=== PATIENT | female | born 1935 | race Caucasian/White ===

== ENCOUNTER 2017-04-05 05:23 | Observation (INO) ==
--- NOTE | 2017-04-05 05:39 | Emergency Department Note ---
Disposition Clinical Impression: Syncope Qualifiers: Syncope type: unspecified Qualified Code(s): R55 - Syncope and collapse Disposition: Admitted As Inpatient Condition: Good Time of Disposition: 06:55 General Adult HPI - General Chief complaint: ED Syncope Stated complaint: near syncope Time Seen by Provider: 04/05/17 05:34 Source: patient, EMS Mode of arrival: EMS Limitations: other (dementia) Nursing Notes Reviewed: Yes Vital Signs Reviewed: Yes - History of Present Illness HPI Narrative: 82-year-old female presents by EMS for apparent lightheadedness. She history of dementia and is at her baseline mental status, but when and medical assistant float at her assisted living facility help her to the bathroom this morning she was very wobbly on her feet. She did not apparently suffer any fall or syncope. She has not had any apparent recent illness or injury. Patient denies any symptoms at this time including headache, fever, confusion, neck stiffness, chest pain or shortness of breath, abdominal pain, nausea, vomiting, diarrhea, constipation , rashes or edema. Pain Scale: 0 - Related Data Home Medications Medication Instructions Recorded Confirmed Atorvastatin [Lipitor] 40 mg PO HS 08/25/16 04/05/17 Cholecalciferol (Vitamin D3) 5,000 unit PO DAILY 08/25/16 04/05/17 [Vitamin D3] Docusate [Colace] 100 mg PO BID 08/25/16 04/05/17 Insulin LISPRO [Humalog Kwikpen 10 unit SQ ACHS 08/25/16 04/05/17 U-100] Ipratropium/Albuterol Neb [Duoneb] 3 ml IH Q4HR PRN 08/25/16 04/05/17 Memantine [Namenda] 10 mg PO BID 08/25/16 04/05/17 Metoprolol Tartrate 50 mg PO BID 08/25/16 04/05/17 Paroxetine HCl [Paroxetine] 10 mg PO DAILY 08/25/16 04/05/17 Travoprost [Travatan Z] 1 drop OP DAILY 08/25/16 04/05/17 Zolpidem Tartrate [Edluar] 5 mg PO DAILY PRN 08/25/16 04/05/17 amLODIPine [Norvasc] 2.5 mg PO DAILY 08/25/16 04/05/17 Insulin Glargine,Hum.rec.anlog 12 unit SQ HS 04/05/17 04/05/17 [Lantus Solostar] Previous Rx's Medication Instructions Recorded Aspirin 81 mg PO DAILY #30 tab.chew 08/27/16 Allergies Allergy/AdvReac Type Severity Reaction Status Date / Time haloperidol [From Haldol] Allergy See Verified 04/05/17 05:26 Comments Penicillins Allergy Anaphylaxis Verified 08/24/16 14:53 triazolam [From Halcion] Allergy See Verified 04/05/17 05:26 Comments All systems ED: reviewed and negative except as stated. Past Medical History - Past Medical History Attestation: Yes The following information was validated with the patient. Source: patient Medical history: Reports: CVA, dementia, diabetes, hyperlipidemia, hypertension Surgical history: Reports: SARAI/BSO Psychiatric history: Reports: depression - Social History Smoking Status: Never smoker Smokeless Tobacco Status: No Alcohol use: Reports: none Drug use: Reports: none Physical Exam - Head Head exam: atraumatic, normocephalic, normal inspection - Eye Eye exam: Present: normal appearance, PERRL, EOMI - ENT ENT exam: normal exam, normal oropharynx, mucous membranes moist - Neck Neck exam: Present: normal inspection, full ROM, trachea midline - Chest Chest inspection: Present: normal inspection, symmetric chest wall rise - Respiratory Respiratory exam: Clear to auscultation bilaterally without wheezes rales or rhonchi Cardiovascular Cardiovascular exam: Present: regular rate, normal rhythm, normal heart sounds - Abdominal Exam Abdominal exam: Present: soft, Non-Tender. Absent: tenderness, distention, guarding, rebound, rigidity - Extremities Exam Extremities exam: Present: normal inspection, full ROM - Expanded Lower Extremity Exam Hip/Pelvis exam: Present: normal inspection, full ROM - Back Exam Back exam: Present: normal inspection, full ROM. Absent: tenderness, CVA tenderness (R), CVA tenderness (L) - Neurological Exam Neurological exam: Present: alert, oriented to person and place, CN II-XII intact - Psychiatric Psychiatric exam: Present: normal affect, normal mood - Skin Skin exam: Present: warm, dry, intact, normal color - General General appearance: alert, in no apparent distress Course - Reevaluation(s) Reevaluation #1: We were finally able to reach assisted living staff and found that the patient actually passed out and was unresponsive for a few minutes, but did not become apneic or pulseless during this spell. Her labs here are normal, orthostatic vitals were positive for decrease in blood pressure from 120-100 systolic along with near-syncope when she stood up. Patient agrees with admission for syncope. Her power of civil attorney is at bedside also agrees with admission. Hospitalist was paged. Time: 06:54 Vital Signs Temperature 96.5 F L 04/05/17 05:29 Pulse Rate 68 04/05/17 05:29 Respiratory Rate 16 04/05/17 05:29 Blood Pressure 108/69 04/05/17 05:29 O2 Sat by Pulse Oximetry 96 04/05/17 05:29 Temperature 97.6 F 04/06/17 07:36 Pulse Rate 79 04/06/17 07:36 Respiratory Rate 16 04/06/17 07:36 Blood Pressure 158/78 04/06/17 07:36 O2 Sat by Pulse Oximetry 95 04/06/17 07:36 Oxygen Delivery Oxygen Delivery Room Air Medical Decision Making - Lab Data Result diagrams: 04/05/17 05:46 04/06/17 05:15 Lab Results 04/05/17 04/05/17 04/05/17 Range/Units 05:46 05:46 05:46 WBC 6.5 (4.3-11.1) K/mcL RBC 4.97 (3.82-4.97) M/mcL Hgb 14.3 (11.5-15.4) g/dL Hct 43.3 (35.3-44.9) % MCV 87.1 (83.0-100.0) fL MCH 28.8 (28.0-33.3) pg MCHC 33.0 (31.6-35.5) g/dL RDW 14.4 (11.5-14.5) % Plt Count 226 (140-400) K/mcL MPV 9.6 (9.4-12.4) fL Immature Gran % 0.5 (0-4) % Seg Neutrophils % 59.3 % Lymphocytes % 29.9 % Monocytes % 6.3 % Eosinophils % 3.4 % Basophils % 0.6 % Neutrophils # 3.9 (1.6-8.9) K/mcL Lymphocytes # 1.9 (0.6-4.6) K/mcL Monocytes # 0.4 (0.0-1.3) K/mcL Eosinophils # 0.2 (0.0-0.6) K/mcL Basophils # 0.0 (0.0-0.2) K/mcL Sodium 139 (136-145) mEq/L Potassium 4.2 (3.5-4.5) mEq/L Chloride 103 (98-109) mEq/L Carbon Dioxide 24 (19-29) mEq/L BUN 16 (7-20) mg/dL Creatinine 0.96 (0.57-1.11) mg/dL Est GFR ( Amer) > 60 (> 60) Est GFR (Non-Af Amer) 56 L (> 60) BUN/Creatinine Ratio 17 (6-26) Glucose 329 H (70-99) mg/dL Calculated Osmolality 302 H (280-300) Calcium 9.2 (8.6-10.8) mg/dL Troponin I 0.00 (0-0.03) ng/mL Urine Color (Yellow) Urine Clarity (Clear) Urine pH (5.0-8.0) pH Units Ur Specific [place] (1.010-1.025) Urine Protein (Neg-Trace) mg/dL Urine Glucose (UA) (Normal) mg/dL Urine Ketones (Negative) mg/dL Urine Blood (Negative) Urine Nitrite (Negative) Urine Bilirubin (Negative) Urine Urobilinogen (Normal) mg/dL Ur Leukocyte Esterase (Negative) 04/05/17 Range/Units 05:58 WBC (4.3-11.1) K/mcL RBC (3.82-4.97) M/mcL Hgb (11.5-15.4) g/dL Hct (35.3-44.9) % MCV (83.0-100.0) fL MCH (28.0-33.3) pg MCHC (31.6-35.5) g/dL RDW (11.5-14.5) % Plt Count (140-400) K/mcL MPV (9.4-12.4) fL Immature Gran % (0-4) % Seg Neutrophils % % Lymphocytes % % Monocytes % % Eosinophils % % Basophils % % Neutrophils # (1.6-8.9) K/mcL Lymphocytes # (0.6-4.6) K/mcL Monocytes # (0.0-1.3) K/mcL Eosinophils # (0.0-0.6) K/mcL Basophils # (0.0-0.2) K/mcL Sodium (136-145) mEq/L Potassium (3.5-4.5) mEq/L Chloride (98-109) mEq/L Carbon Dioxide (19-29) mEq/L BUN (7-20) mg/dL Creatinine (0.57-1.11) mg/dL Est GFR ( Amer) (> 60) Est GFR (Non-Af Amer) (> 60) BUN/Creatinine Ratio (6-26) Glucose (70-99) mg/dL Calculated Osmolality (280-300) Calcium (8.6-10.8) mg/dL Troponin I (0-0.03) ng/mL Urine Color Yellow (Yellow) Urine Clarity Clear (Clear) Urine pH 6.5 (5.0-8.0) pH Units Ur Specific [place] 1.008 L (1.010-1.025) Urine Protein Negative (Neg-Trace) mg/dL Urine Glucose (UA) 100 H (Normal) mg/dL Urine Ketones Negative (Negative) mg/dL Urine Blood Negative (Negative) Urine Nitrite Negative (Negative) Urine Bilirubin Negative (Negative) Urine Urobilinogen Normal (Normal) mg/dL Ur Leukocyte Esterase Negative (Negative) Attestation Statement - Attestation Attestation: I examined this patient and my medical decision-making was reviewed with the AUTOMATIC PRINT DEVELOPER/PA/Advanced Practice Nurse/Resident Physician. I agree with the documented findings, disposition and treatment plan as described except to the extent set forth below. 82 yo female BIB EMS after syncopal episode at assisted living facility. Pt apparently syncopized while walking to the bathroom. Pt has negative initial troponin. ECG does not show STEMI. vss in ED. Pt admitted to the hospital for further care and evaluation.
[2017-04-05 05:58] LABS: Basophils % 0.6 %; Eosinophils # 0.2 K/mcL (0.0-0.6); Eosinophils % 3.4 %; Hematocrit 43.3 % (35.3-44.9); Hemoglobin 14.3 g/dL (11.5-15.4); Immature Granulocytes % 0.5 % (0-4); Lymphocytes # 1.9 K/mcL (0.6-4.6); Lymphocytes % 29.9 %; Mean Corpuscular Hemoglobin 28.8 pg (28.0-33.3); Mean Corpuscular Volume 87.1 fL (83.0-100.0); Mean Platelet Volume 9.6 fL (9.4-12.4); Monocytes # 0.4 K/mcL (0.0-1.3); Monocytes % 6.3 %; Neutrophils # 3.9 K/mcL (1.6-8.9); Platelet Count 226 K/mcL (140-400); Red Blood Count 4.97 M/mcL (3.82-4.97); Red Cell Distribution Width 14.4 % (11.5-14.5); Segmented Neutrophils % 59.3 %
[2017-04-05 06:05] LABS: Bilirubin,Urine Negative (Negative); Blood,Urine Negative (Negative); Clarity,Urine Clear (Clear); Color,Urine Yellow (Yellow); Glucose,Urine (UA) 100 mg/dL (Normal); Ketones,Urine Negative (Negative); Leukocyte Esterase,Urine Negative (Negative); Nitrite,Urine Negative (Negative); PH,Urine 6.5 pH Units (5.0-8.0); Protein,Urine Negative (Neg-Trace); Specific Gravity,Urine 1.008 (1.010-1.025); Urobilinogen,Urine Normal (Normal)
[2017-04-05 06:09] LABS: BUN/Creatinine Ratio 17 (6-26); Blood Urea Nitrogen 16 mg/dL (7-20); Calcium 9.2 mg/dL (8.6-10.8); Carbon Dioxide 24 mEq/L (19-29); Chloride 103 mEq/L (98-109); Glucose 329 mg/dL (70-99); Osmolality,Calculated 302 (280-300); Potassium 4.2 mEq/L (3.5-4.5); Sodium 139 mEq/L (136-145); eGFR For African Americans > 60 (> 60); eGFR For Non-African Americans 56 (> 60)
[2017-04-05] MEDS ORDERED: 0.9 % Sodium Chloride 1,000 ML IVC ONE (06:54)
--- NOTE | 2017-04-05 07:17 | Emergency Department Note ---
Disposition Clinical Impression: Syncope Qualifiers: Syncope type: unspecified Qualified Code(s): R55 - Syncope and collapse Disposition: Admitted As Inpatient Condition: Good Referrals: Millie Muniz [Primary Care Provider] - Forms: ED Satisfaction Letter General Adult HPI - General Chief complaint: ED Syncope Stated complaint: near syncope Time Seen by Provider: 04/05/17 05:34 Source: patient, EMS Mode of arrival: EMS Limitations: other (dementia) - History of Present Illness Pain Scale: 0 - Related Data Home Medications Medication Instructions Recorded Confirmed Atorvastatin [Lipitor] 40 mg PO HS 08/25/16 08/25/16 Cholecalciferol (Vitamin D3) 5,000 unit PO DAILY 08/25/16 08/25/16 [Vitamin D3] Docusate [Colace] 100 mg PO BID 08/25/16 08/25/16 Insulin LISPRO [Humalog Kwikpen 6 unit SQ TID 08/25/16 08/25/16 U-100] Ipratropium/Albuterol Neb [Duoneb] 3 ml IH Q4HR PRN 08/25/16 08/25/16 Lactulose [Kristalose] 20 gm PO DAILY PRN 08/25/16 08/25/16 Meclizine HCl [Bonine] 12.5 mg PO TID PRN 08/25/16 08/25/16 Memantine [Namenda] 10 mg PO BID 08/25/16 08/25/16 Metoprolol Tartrate 50 mg PO BID 08/25/16 08/25/16 Mometasone Furoate [Elocon] 1 appl TP BID PRN 08/25/16 08/25/16 Nystatin [Nystatin Suspension] 10 ml PO PRN PRN 08/25/16 08/25/16 Paroxetine HCl [Paroxetine] 10 mg PO DAILY 08/25/16 08/25/16 Promethazine [Phenergan] 0.5 ml IM Q6HR PRN 08/25/16 08/25/16 Travoprost [Travatan Z] 1 drop OP DAILY 08/25/16 08/25/16 Zolpidem Tartrate [Edluar] 5 mg PO DAILY PRN 08/25/16 08/25/16 amLODIPine [Norvasc] 2.5 mg PO DAILY 08/25/16 08/25/16 Previous Rx's Medication Instructions Recorded Aspirin 81 mg PO DAILY #30 tab.chew 08/27/16 Allergies Allergy/AdvReac Type Severity Reaction Status Date / Time haloperidol [From Haldol] Allergy See Verified 04/05/17 05:26 Comments Penicillins Allergy Anaphylaxis Verified 08/24/16 14:53 triazolam [From Halcion] Allergy See Verified 04/05/17 05:26 Comments Past Medical History - Past Medical History Medical history: Reports: CVA, dementia, diabetes, hyperlipidemia, hypertension Surgical history: Reports: SARAI/BSO Psychiatric history: Reports: depression - Social History Smoking Status: Never smoker Smokeless Tobacco Status: No Alcohol use: Reports: none Drug use: Reports: none Physical Exam - General Limitations: other (dementia) General appearance: alert, in no apparent distress Course Vital Signs Temperature 96.5 F L 04/05/17 05:29 Pulse Rate 68 04/05/17 05:29 Respiratory Rate 16 04/05/17 05:29 Blood Pressure 108/69 04/05/17 05:29 O2 Sat by Pulse Oximetry 96 04/05/17 05:29 Temperature 96.5 F L 04/05/17 05:29 Pulse Rate 63 04/05/17 07:40 Respiratory Rate 16 04/05/17 07:40 Blood Pressure 138/69 04/05/17 07:40 O2 Sat by Pulse Oximetry 97 04/05/17 07:40 Oxygen Delivery Oxygen Delivery Room Air Medical Decision Making - Lab Data Result diagrams: 04/05/17 05:46 04/05/17 05:46 Lab Results 04/05/17 04/05/17 04/05/17 Range/Units 05:46 05:46 05:46 WBC 6.5 (4.3-11.1) K/mcL RBC 4.97 (3.82-4.97) M/mcL Hgb 14.3 (11.5-15.4) g/dL Hct 43.3 (35.3-44.9) % MCV 87.1 (83.0-100.0) fL MCH 28.8 (28.0-33.3) pg MCHC 33.0 (31.6-35.5) g/dL RDW 14.4 (11.5-14.5) % Plt Count 226 (140-400) K/mcL MPV 9.6 (9.4-12.4) fL Immature Gran % 0.5 (0-4) % Seg Neutrophils % 59.3 % Lymphocytes % 29.9 % Monocytes % 6.3 % Eosinophils % 3.4 % Basophils % 0.6 % Neutrophils # 3.9 (1.6-8.9) K/mcL Lymphocytes # 1.9 (0.6-4.6) K/mcL Monocytes # 0.4 (0.0-1.3) K/mcL Eosinophils # 0.2 (0.0-0.6) K/mcL Basophils # 0.0 (0.0-0.2) K/mcL Sodium 139 (136-145) mEq/L Potassium 4.2 (3.5-4.5) mEq/L Chloride 103 (98-109) mEq/L Carbon Dioxide 24 (19-29) mEq/L BUN 16 (7-20) mg/dL Creatinine 0.96 (0.57-1.11) mg/dL Est GFR ( Amer) > 60 (> 60) Est GFR (Non-Af Amer) 56 L (> 60) BUN/Creatinine Ratio 17 (6-26) Glucose 329 H (70-99) mg/dL Calculated Osmolality 302 H (280-300) Calcium 9.2 (8.6-10.8) mg/dL Troponin I 0.00 (0-0.03) ng/mL Urine Color (Yellow) Urine Clarity (Clear) Urine pH (5.0-8.0) pH Units Ur Specific [place] (1.010-1.025) Urine Protein (Neg-Trace) mg/dL Urine Glucose (UA) (Normal) mg/dL Urine Ketones (Negative) mg/dL Urine Blood (Negative) Urine Nitrite (Negative) Urine Bilirubin (Negative) Urine Urobilinogen (Normal) mg/dL Ur Leukocyte Esterase (Negative) 04/05/17 Range/Units 05:58 WBC (4.3-11.1) K/mcL RBC (3.82-4.97) M/mcL Hgb (11.5-15.4) g/dL Hct (35.3-44.9) % MCV (83.0-100.0) fL MCH (28.0-33.3) pg MCHC (31.6-35.5) g/dL RDW (11.5-14.5) % Plt Count (140-400) K/mcL MPV (9.4-12.4) fL Immature Gran % (0-4) % Seg Neutrophils % % Lymphocytes % % Monocytes % % Eosinophils % % Basophils % % Neutrophils # (1.6-8.9) K/mcL Lymphocytes # (0.6-4.6) K/mcL Monocytes # (0.0-1.3) K/mcL Eosinophils # (0.0-0.6) K/mcL Basophils # (0.0-0.2) K/mcL Sodium (136-145) mEq/L Potassium (3.5-4.5) mEq/L Chloride (98-109) mEq/L Carbon Dioxide (19-29) mEq/L BUN (7-20) mg/dL Creatinine (0.57-1.11) mg/dL Est GFR ( Amer) (> 60) Est GFR (Non-Af Amer) (> 60) BUN/Creatinine Ratio (6-26) Glucose (70-99) mg/dL Calculated Osmolality (280-300) Calcium (8.6-10.8) mg/dL Troponin I (0-0.03) ng/mL Urine Color Yellow (Yellow) Urine Clarity Clear (Clear) Urine pH 6.5 (5.0-8.0) pH Units Ur Specific [place] 1.008 L (1.010-1.025) Urine Protein Negative (Neg-Trace) mg/dL Urine Glucose (UA) 100 H (Normal) mg/dL Urine Ketones Negative (Negative) mg/dL Urine Blood Negative (Negative) Urine Nitrite Negative (Negative) Urine Bilirubin Negative (Negative) Urine Urobilinogen Normal (Normal) mg/dL Ur Leukocyte Esterase Negative (Negative) Attestation Statement - Attestation Attestation: Care assumed from Dr. Ko at 7 AM pending admission. Patient presented with a syncopal event. Labs reviewed by me. She is hyperglycemic with a known history of diabetes. EKG reviewed by me. Patient resting comfortably with family at bedside. She appears in no acute distress. Meal tray ordered. We will discuss this case with the admitting hospitalist and arrange admission
[2017-04-05] MEDS ORDERED: Ondansetron 4 MG/2 ML VIAL IVP PRN (07:44)
[2017-04-05] MEDS ORDERED: Naloxone 0.4 MG/ML INJ IVP PRN (07:44)
[2017-04-05] MEDS ORDERED: Acetaminophen 325 MG TABLET PO PRN (07:44)
[2017-04-05] MEDS ORDERED: Dextrose Gel 15 GM PO PRN ×2 (07:53)
[2017-04-05] MEDS ORDERED: *HR* Dextrose 50 % in Water (Syg) 50 ML SYRINGE IVP PRN (07:53)
[2017-04-05] MEDS ORDERED: D5% in Water 1,000 ML IVC PRN (07:53)
--- NOTE | 2017-04-05 08:39 | Internal Med History&Physical ---
Date of Encounter: 04/05/17 Time of Encounter: 08:00 Assessment and Plan (1) Syncope Current visit: Yes Status: Acute The patient had a near syncopal episode according to her own admission and according to EMS reports. She denies falling down or hitting her head. No tenderness on palpation of the head is present. No indication for a CT scan of the head. Patient will be placed under observation on telemetry to monitor for any arrhythmic events. Orthostatic vitals performed in the emergency room have been negative. Patient's last echo was from August 2016. We will obtain a repeat echocardiogram. Patient does not have a history of coronary artery disease or CABG in the past. Will obtain PT and OT consults to evaluate the patient. Likely discharge home tomorrow after 24 hours of monitoring on telemetry and after the echocardiogram is performed. If no arrhythmic events detected on telemetry, patient may need outpatient Holter monitoring or event recorder. Qualifiers: Syncope type: unspecified Qualified Code(s): R55 - Syncope and collapse (2) Hypertension Current visit: Yes Status: Chronic Patient's blood pressure is adequately controlled. Will hold blood pressure medication for now. Resume based on her blood pressure. Qualifiers: Hypertension type: essential hypertension Qualified Code(s): I10 - Essential (primary) hypertension (3) Dementia Current visit: Yes Status: Chronic Patient is oriented 2. Continue home medications. Qualifiers: Dementia type: unspecified type Dementia behavioral disturbance: without behavioral disturbance Qualified Code(s): F03.90 - Unspecified dementia without behavioral disturbance (4) Cerebrovascular accident Current visit: Yes Status: Chronic Patient had a CVA in August 2016 in the right MCA territory. Continue aspirin and statin. Patient had cryptogenic stroke-however, she seems to have paroxysmal atrial fibrillation which may be causing her cerebrovascular events. Patient will require outpatient Holter monitoring if inpatient telemetry does not reveal any arrhythmic events. Will not start anticoagulation during the current hospital stay. This mainly to be started as an outpatient depending on further outpatient investigations. Qualifiers: CVA mechanism: embolism Precerebral and cerebral artery: middle cerebral artery Laterality of affected vessel: right Qualified Code(s): I63.411 - Cerebral infarction due to embolism of right middle cerebral artery (5) Atrial fibrillation Current visit: Yes Status: Suspected Patient likely has paroxysmal atrial fibrillation which is the cause of her prior strokes and may be the cause of her near syncopal episode during the current admission. Patient may require outpatient Holter or event recorder monitoring if current telemetry is negative. Qualifiers: Atrial fibrillation type: paroxysmal Qualified Code(s): I48.0 - Paroxysmal atrial fibrillation Internal Medicine - H&P: HPI Chief complaint: Near Syncope Admitted From: Emergency Dept Plans for Post Hospital Care: Transfer Alf Care History of present illness: Ms. Bashir is a 82 year old female who was brought to the emergency department by EMS after she had a syncopal episode while she was at her assisted living facility. Currently, the patient is alone in the room and is not accompanied by family. History was obtained from the patient as well as from reports from EMS and from the emergency room physician. The patient states that after she got to bed from the restroom, while she was standing, she felt like she was going to pass out and felt very lightheaded. She called out for help. She was assisted onto the bed where she lay down and she states that she did not pass out. According to EMS records, they were called as the patient had experienced a near syncopal episode. When EMS arrived, the patient was sitting in a chair. The patient denies any headache or chest pain, palpitations, shortness of breath, cough or wheezing. She denies any nausea, diaphoresis, vomiting, diarrhea or constipation or abdominal pain. Past Med Surg Social Fam HX - Past Medical History Medical history: CVA, dementia, diabetes, hyperlipidemia, hypertension Psychiatric history: depression - Past Surgical History Surgical History: SARAI/BSO - Social History Smoking Status: Never smoker Smokeless Tobacco Status: No Alcohol use: none Drug use: none Current living situation: Assisted Living Activity Level: Uses cane/walker Recent Out of Country Travel Within the Last 8 Weeks: No Exposure or Possible Exposure to Illness During Travel: No - Family History Father Hx Family Cardiac Disorders: Yes Internal Medicine - H&P: Meds Atorvastatin [Lipitor] 40 mg PO HS 08/25/16 [History] Cholecalciferol (Vitamin D3) [Vitamin D3] 5,000 unit PO DAILY 08/25/16 [History] Docusate [Colace] 100 mg PO BID 08/25/16 [History] Insulin LISPRO [Humalog Kwikpen U-100] 6 unit SQ TID 08/25/16 [History] Ipratropium/Albuterol Neb [Duoneb] 3 ml IH Q4HR PRN 08/25/16 [History] Lactulose [Kristalose] 20 gm PO DAILY PRN 08/25/16 [History] Meclizine HCl [Bonine] 12.5 mg PO TID PRN 08/25/16 [History] Memantine [Namenda] 10 mg PO BID 08/25/16 [History] Metoprolol Tartrate 50 mg PO BID 08/25/16 [History] Mometasone Furoate [Elocon] 1 appl TP BID PRN 08/25/16 [History] Nystatin [Nystatin Suspension] 10 ml PO PRN PRN 08/25/16 [History] Paroxetine HCl [Paroxetine] 10 mg PO DAILY 08/25/16 [History] Promethazine [Phenergan] 0.5 ml IM Q6HR PRN 08/25/16 [History] Travoprost [Travatan Z] 1 drop OP DAILY 08/25/16 [History] Zolpidem Tartrate [Edluar] 5 mg PO DAILY PRN 08/25/16 [History] amLODIPine [Norvasc] 2.5 mg PO DAILY 08/25/16 [History] Aspirin 81 mg PO DAILY #30 tab.chew 08/27/16 [Rx] Allergies haloperidol [From Haldol] Allergy (Verified 04/05/17 05:26) See Comments Penicillins Allergy (Verified 08/24/16 14:53) Anaphylaxis triazolam [From Halcion] Allergy (Verified 04/05/17 05:26) See Comments All Systems PM: A 10-system review of systems was performed and is negative for pertinent findings except as documented above in the HPI. Review of systems: 10 systems have been reviewed and are negative except as mentioned in the history of present illness - Constitutional Vitals: Temp Pulse Resp BP Pulse Ox 96.5 F L 63 16 138/69 97 04/05/17 05:29 04/05/17 07:40 04/05/17 08:14 04/05/17 08:14 04/05/17 07:40 Exam: Gen.: Lying in bed. No acute distress. Eyes: Pupils equal, round and reactive to light. Extraocular muscles intact. ENT: Moist mucous membranes. No oropharyngeal erythema or discharge. Chest: Clear to auscultation bilaterally. No adventitious sounds present. CVS: First and second heart sounds present. No murmurs, rubs or gallops. Regular rate and rhythm. Abdomen: Soft, nontender, nondistended. Bowel sounds present. No hepatosplenomegaly. Skin: No decubitus ulcers appreciated. SCIENCE MANAGER: Cranial nerves II through XII grossly intact. Power 5/5 all over. No sensory abnormalities. Psychiatric: Alert, awake and oriented to place and person. Lymphatic system: No lymphadenopathy appreciated Internal Med - H&P Results - Labs CBC & Chem 7: 04/05/17 05:46 04/05/17 05:46 - EKG Data -: EKG Interpreted by Myself EKG shows normal: sinus rhythm Rate: normal - EKG Data Prior EKG available for review: yes When compared to previous EKG: there is no significant change - Diagnostic Studies Chest x-ray Status: image reviewed by me (No acute infiltrates or abnormalities detected) Other Images Additional comments: Echo from August 2016 reveals a preserved ejection fraction of 60%, mild left ventricular diastolic dysfunction. Carotid Dopplers from August 2016 revealed 40-59% stenosis in the left proximal internal carotid artery. Repeat carotid ultrasound in one year was recommended.
[2017-04-05] MEDS ORDERED: Insulin DETEMIR 100 UNIT/ML X5UNITS SQ ONE (08:51)
[2017-04-05] MEDS: Insulin LISPRO 300 UNITS/3 ML VIAL SQ SCH ×2 (11:26→16:39)
--- NOTE | 2017-04-05 13:12 | ECHO - Doppler Report ---
Echocardiogram Name: Thalia Bashir Date of Study: 04/05/2017 Date: 1935 Ht: 62.0 in Medical Record#: [id number] Age: 82 Wt: 150.0 lb Gender: Female BSA: 1.69 Order #: [id number] Location: [facility] Room #: 2A12 Reading Physician: Armen Echavarria MD, [facility] Architectural Draftsman: Mabel Mancini Ordering Physician: Benigno Campbell MD Primary Physician: None Indications: Syncope Impressions: LVEF 55-60%. Mild concentric left ventricular hypertrophy. Mild left ventricular diastolic dysfunction. No pulmonary hypertension. No significant valvular dysfunction. Left Ventricular Wall Motion: Rest Echo Findings All wall segments showed normal motion. Findings: Study Quality * Technically adequate exam. Right Ventricle * Normal right ventricular structure and function. Left Atrium * Normal left atrial size. Aorta * Normally sized aortic root. Pericardium * The pericardium appears normal. Mitral Valve * No mitral stenosis. * Mild mitral annular calcification * Mild mitral regurgitation. Left Ventricle * Mild concentric left ventricular hypertrophy. * LVEF 55-60%. * Mild left ventricular diastolic dysfunction. Tricuspid Valve * Estimated RVSP is 15 mmHg. * Estimated RA pressure is 3-5 mmHg. * No pulmonary hypertension. * No tricuspid stenosis. * Trace tricuspid regurgitation. Pulmonic Valve * No pulmonic regurgitation. * No pulmonic stenosis. Aortic Valve * No aortic regurgitation. * No aortic stenosis. IVC * Normal IVC dimensions and inspiratory collapse. Interatrial Septum * Interatrial septum not well evaluated. Right Atrium * Right atrium is not well visualized. History Hypertension Diabetes Hypercholesteremia Years 2 Packs 1 Family History of CAD 08/25/2016 a Previous Echo was performed. Measurements: BP: 138/ 80 2D Normal Values RVIDd: 2.40 cm <2.7 cm IVSd: 2.40 cm 0.6 - 1.0 cm LVIDd: 2.20 cm 3.7 - 5.6 cm LVPWd: 1.20 cm 0.6 - 1.1 cm LVIDs: 1.50 cm 1.5 - 3.6 cm LA: 3.90 cm 2.0 - 4.0cm %FS: 31.80 cm >25 % LA volume: 41 Mitral Valve Peak E:.73 m/sec Peak A:1.14 m/sec E/A Ratio:0.6 Peak E' Lat Celestine:4.68 cm/s Peak E' Med Celestine:3.22 cm/s E/E' Lat Ratio:15.5 E/E' Med Ratio:22.5 Tricuspid Valve TV Regurg Peak Grad: 15.00mmHg TV Regurg Peak Celestine: 1.91m/sec Updated by Armen Echavarria MD, [facility] on 04/05/2017 1:07:33 PM electronically signed on 04/05/2017 1:08:45 PM with status of Final Wall Motion [place]: 1=Normal, 2=Hypokinesis, 3=Akinesis, 4=Dyskinesis, 5=Aneurysmal, 6=Hyperkinetic, X=Not Visualized (Blank)=Missing
[2017-04-05] MEDS ORDERED: Insulin DETEMIR 100 UNIT/ML X5UNITS SQ SCH (21:00)
[2017-04-05] MEDS ORDERED: Insulin LISPRO 300 UNITS/3 ML VIAL SQ SCH (21:00)
[2017-04-06 05:54] LABS: BUN/Creatinine Ratio 22 (6-26); Blood Urea Nitrogen 17 mg/dL (7-20); Calcium 8.8 mg/dL (8.6-10.8); Carbon Dioxide 22 mEq/L (19-29); Chloride 105 mEq/L (98-109); Glucose 212 mg/dL (70-99); Osmolality,Calculated 294 (280-300); Sodium 138 mEq/L (136-145); eGFR For African Americans > 60 (> 60); eGFR For Non-African Americans > 60 (> 60)
[2017-04-06 07:56] VITALS: BP 158/78
[2017-04-06] MEDS: Insulin LISPRO 300 UNITS/3 ML VIAL SQ SCH (08:26)
--- NOTE | 2017-04-06 10:50 | Discharge Summary ---
Date of Encounter: 04/06/17 Time of Encounter: 10:47 - Discharge Diagnosis (1) Syncope Priority: Primary Status: Acute Qualifiers: Syncope type: unspecified Qualified Code(s): R55 - Syncope and collapse (2) Dementia Priority: Secondary Status: Chronic Qualifiers: Dementia type: unspecified type Dementia behavioral disturbance: without behavioral disturbance Qualified Code(s): F03.90 - Unspecified dementia without behavioral disturbance (3) CVA (cerebral vascular accident) Priority: Secondary Status: Acute Qualifiers: CVA mechanism: thrombosis Precerebral and cerebral artery: unspecified cerebral artery Qualified Code(s): I63.30 - Cerebral infarction due to thrombosis of unspecified cerebral artery (4) CAD (coronary artery disease) Priority: Secondary Status: Chronic Qualifiers: Coronary Disease-Associated Artery/Lesion type: bypass graft [place] vs. transplanted heart: [place] heart Associated angina: without angina Qualified Code(s): I25.810 - Atherosclerosis of coronary artery bypass graft(s) without angina pectoris - Discharge Medications Home Medications: Atorvastatin [Lipitor] 40 mg PO HS 08/25/16 [History] Cholecalciferol (Vitamin D3) [Vitamin D3] 5,000 unit PO DAILY 08/25/16 [History] Docusate [Colace] 100 mg PO BID 08/25/16 [History] Insulin LISPRO [Humalog Kwikpen U-100] 10 unit SQ ACHS 08/25/16 [History] Ipratropium/Albuterol Neb [Duoneb] 3 ml IH Q4HR PRN 08/25/16 [History] Memantine [Namenda] 10 mg PO BID 08/25/16 [History] Metoprolol Tartrate 50 mg PO BID 08/25/16 [History] Paroxetine HCl [Paroxetine] 10 mg PO DAILY 08/25/16 [History] Travoprost [Travatan Z] 1 drop OP DAILY 08/25/16 [History] Zolpidem Tartrate [Edluar] 5 mg PO DAILY PRN 08/25/16 [History] amLODIPine [Norvasc] 2.5 mg PO DAILY 08/25/16 [History] Aspirin 81 mg PO DAILY #30 tab.chew 08/27/16 [Rx] Insulin Glargine,Hum.rec.anlog [Lantus Solostar] 12 unit SQ HS 04/05/17 [History ] Allergies/Adverse Reactions: Allergies haloperidol [From Haldol] Allergy (Verified 04/05/17 05:26) See Comments Penicillins Allergy (Verified 08/24/16 14:53) Anaphylaxis triazolam [From Halcion] Allergy (Verified 04/05/17 05:26) See Comments Procedures/tests Complete & Pending: Procedures Performed prior 72 hours Category Date Time Status EV echocardiogram Routine Y 04/05/17 08:35 Completed Date of admission: 04/05/17 08:04 Primary care physician: Millie Muniz Discharging clinician: Grupo Elliott Anticipated date of discharge: 04/06/17 - Patient Status Disposition: Home, Self-Care Condition: Good Functional capacity at discharge: uses cane/walker - Discharge Instructions Follow Up With: Millie Muniz [Primary Care Provider] - Additional Instructions: Discharge to assisted living facility - Diet and Activity Activity: increase activity as tolerated Diet: advance to your usual diet Interval History: Ms. Bashir is a 82 year old female who was brought to the emergency department by EMS after she had a syncopal episode while she was at her assisted living facility. Currently, the patient is alone in the room and is not accompanied by family. History was obtained from the patient as well as from reports from EMS and from the emergency room physician. The patient states that after she got to bed from the restroom, while she was standing, she felt like she was going to pass out and felt very lightheaded. She called out for help. She was assisted onto the bed where she lay down and she states that she did not pass out. According to EMS records, they were called as the patient had experienced a near syncopal episode. When EMS arrived, the patient was sitting in a chair. The patient denies any headache or chest pain, palpitations, shortness of breath, cough or wheezing. She denies any nausea, diaphoresis, vomiting, diarrhea or constipation or abdominal pain. Hospital course: Ms. Bashir is a 82 year old female who presented to our emergency department, from an assisted living facility. The patient has a history as stated above, she presented due to a presyncopal episode, the patient did not pass out. She underwent workup in the emergency department and was admitted for further observation and workup. Chest x-ray did not reveal acute abnormalities. Troponin was negative. An echo Was Obtained Which Was Essentially Unremarkable. Her Vital Signs Are Otherwise Stable, Blood Work Is Essentially Unremarkable. The Patient Is Alert, Awake, Oriented, She Is Not in Any Distress at This Point. The Patient Will Be Discharged Home Today, She Will Continue with Home Medications. - Time Spent with Patient Total time spent providing and/or coordinating discharge services: - Constitutional Vitals: Temp Pulse Resp BP Pulse Ox 97.6 F 79 16 158/78 95 04/06/17 07:36 04/06/17 07:36 04/06/17 07:36 04/06/17 07:36 04/06/17 07:36 General appearance: Present: A&O X 3, pleasant, no acute distress - Head Head exam: Present: atraumatic, normocephalic - Eye Eye exam: Present: PERRL, conjuntiva pink, sclera anicteric Pupils: Present: PERRL - Neck Neck exam general surgery: Present: supple, trachea midline. Absent: lymphadenopathy - Respiratory Respiratory exam: Present: CTAB. Absent: accessory muscle use, rales, rhonchi, wheezes - Cardiovascular Cardiovascular exam: Present: RRR, +S1, +S2. Absent: diastolic murmur, gallop, rubs, systolic murmur - GI/Abdominal GI/Abdominal exam: Present: normal bowel sounds, soft, no peritoneal signs. Absent: distended, tenderness - Extremities Exam Extremities exam: Present: warm, radial pulses palpable and symetrical. Absent : calf tenderness, cyanotic, pedal edema - Neurological Exam Neurological exam: Present: CN II-XII intact, oriented X3, no focal deficits. Absent: pronater drift, facial droop, speech deficit - Skin Skin exam: Present: dry, intact
--- NOTE | 2017-04-06 20:12 | Electrocardiograph Report ---
[place] [id number] Test Date: 2017-04-05 Pat Name: Thalia Bashir Department: 104 Room: 2A12 Gender: F Dye Penetrant Testing Technician: PARMINDER : 1935 Requested By: Gilberto Driver Order Number: [id number] Reading MD: Armen Echavarria MD Measurements Intervals [place] Rate: 68 P: 1 LA: 169 QRS: 48 QRSD: 92 T: 65 QT: 423 QTc: 440 Interpretive Statements SINUS RHYTHM Electronically Signed On 04-06-2017 20:11:11 EDT by Armen Echavarria MD
== END 2017-04-06 12:37 | disposition home or self-care (01) ==
LOC: 2ANU 05:23 → EMEROO 05:23 → 2ANU 09:21
PROVIDERS: ADMIT Internal Medicine Sleep Medicine; ATTEND Internal Medicine

== ENCOUNTER 2017-09-30 10:10 | Observation (INO) ==
--- NOTE | 2017-09-30 11:43 | Emergency Department Note ---
START Narrative - START START: I examined this patient and my medical decision-making was reviewed with the Resident Physician. I agree with the documented findings, disposition and treatment plan as described except to the extent set forth below. Pt altered for last couple days per niece's report. No lateralizing deficit on my exam. Speaks, answers questions without dysarthria. Work up reviewed with residents.
[2017-09-30 12:12] LABS: Bilirubin,Urine Negative (Negative); Blood,Urine Negative (Negative); Clarity,Urine Cloudy (Clear); Color,Urine Yellow (Yellow); Glucose,Urine (UA) Normal (Normal); Ketones,Urine Negative (Negative); Leukocyte Esterase,Urine Negative (Negative); Nitrite,Urine Negative (Negative); Protein,Urine Negative (Neg-Trace); Specific Gravity,Urine 1.015 (1.010-1.025); Urobilinogen,Urine Normal (Normal)
[2017-09-30 12:23] LABS: RBC,Urine 0-3 per hpf (0-3); Squamous Epithelial Cell,Urine Few per lpf (None-Few); WBC,Urine 0-3 per hpf (0-3)
[2017-09-30 12:24] LABS: Basophils % 0.5 %; Eosinophils # 0.1 K/mcL (0.0-0.6); Eosinophils % 1.9 %; Hematocrit 39.3 % (35.3-44.9); Hemoglobin 12.8 g/dL (11.5-15.4); Immature Granulocytes % 0.3 % (0-4); Lymphocytes % 25.8 %; Mean Corpuscular HGB Conc 32.6 g/dL (31.6-35.5); Mean Corpuscular Hemoglobin 28.6 pg (28.0-33.3); Mean Corpuscular Volume 87.7 fL (83.0-100.0); Mean Platelet Volume 9.3 fL (9.4-12.4); Monocytes # 0.4 K/mcL (0.0-1.3); Monocytes % 6.5 %; Platelet Count 197 K/mcL (140-400); Red Blood Count 4.48 M/mcL (3.82-4.97); Red Cell Distribution Width 15.5 % (11.5-14.5)
[2017-09-30 12:24] LABS: Bacteria,Urine None Seen per hpf (None-Few); Yeast,Urine Few per hpf (None Seen)
[2017-09-30 12:25] LABS: Lymphocytes # 1.7 K/mcL (0.6-4.6); Neutrophils # 4.2 K/mcL (1.6-8.9)
[2017-09-30 12:38] LABS: Alanine Aminotransferase 17 Units/L (0-55); Albumin 3.1 g/dL (3.5-5.0); Albumin/Globulin Ratio 0.9 (1.1-2.2); Alkaline Phosphatase 112 Units/L (38-126); Aspartate Amino Transferase 16 Units/L (5-34); BUN/Creatinine Ratio 19 (6-26); Bilirubin,Direct 0.3 mg/dL (0.0-0.5); Bilirubin,Indirect 0.2 mg/dL (0.0-1.2); Bilirubin,Total 0.5 mg/dL (0.2-1.2); Blood Urea Nitrogen 15 mg/dL (7-20); Calcium 9.2 mg/dL (8.6-10.8); Carbon Dioxide 26 mEq/L (19-29); Chloride 102 mEq/L (98-109); Globulin 3.6 g/dL (2.4-3.5); Glucose 141 mg/dL (70-99); Osmolality,Calculated 287 (280-300); Potassium 3.8 mEq/L (3.5-4.5); Sodium 137 mEq/L (136-145); Total Protein 6.7 g/dL (6.0-8.3); eGFR For African Americans > 60 (> 60); eGFR For Non-African Americans > 60 (> 60)
[2017-09-30 12:43] LABS: Platelet Estimate Normal (Normal); Reactive Lymphocytes Present (Not Present)
--- NOTE | 2017-09-30 12:49 | Emergency Department Note ---
Disposition Clinical Impression: Altered mental status Qualifiers: Altered mental status type: somnolence Qualified Code(s): R40.0 - Somnolence Lower extremity weakness Qualifiers: Qualified Code(s): R29.898 - Disposition: Admitted As Inpatient Condition: Good General Adult HPI - General Chief complaint: ED Altered Mental Status Stated complaint: altered mental status Limitations: altered mental status Nursing Notes Reviewed: Yes Vital Signs Reviewed: Yes - History of Present Illness HPI Narrative: 82-year-old female presents to the emergency department with concern from skilled nursing that patient is having worsening lower extremity weakness and altered mental status. Patient has a past medical history of dementia and skilled nursing states that the dementia is worsening over the last couple days. Patient denies any pain or discomfort anywhere. Pain Scale: 0 - Related Data Home Medications Medication Instructions Recorded Confirmed Atorvastatin [Lipitor] 40 mg PO HS 08/25/16 09/30/17 Cholecalciferol (Vitamin D3) 5,000 unit PO DAILY 08/25/16 09/30/17 [Vitamin D3] Ipratropium/Albuterol Neb [Duoneb] 3 ml IH Q4HR PRN 08/25/16 09/30/17 Memantine [Namenda] 10 mg PO BID 08/25/16 09/30/17 Metoprolol Tartrate 50 mg PO BID 08/25/16 09/30/17 Paroxetine HCl [Paroxetine] 10 mg PO DAILY 08/25/16 09/30/17 Travoprost [Travatan Z] 1 drop OP DAILY 08/25/16 09/30/17 amLODIPine [Norvasc] 2.5 mg PO DAILY 08/25/16 09/30/17 Insulin Glargine,Hum.rec.anlog 12 unit SQ HS 04/05/17 09/30/17 [Lantus Solostar] Glucagon,Human Recombinant 1 mg IJ AD PRN 09/30/17 09/30/17 [Glucagen] Insulin ASPART [NovoLOG] 14 unit SQ TID 09/30/17 09/30/17 Lactulose 20 gm PO DAILY 09/30/17 09/30/17 Menthol/Zinc Oxide [Calmoseptine 1 appl TP BID PRN 09/30/17 09/30/17 Ointment Packet] Mometasone Furoate [Elocon] 1 appl TP BID 09/30/17 09/30/17 Nystatin POWDER [Nystop] 1 appl TP BID 09/30/17 09/30/17 Previous Rx's Medication Instructions Recorded Aspirin 81 mg PO DAILY #30 tab.chew 08/27/16 Docusate [Colace] 100 mg PO BID PRN #0 10/01/17 Fluconazole [Diflucan] 100 mg PO DAILY 7 Days tablet 10/01/17 Allergies Allergy/AdvReac Type Severity Reaction Status Date / Time haloperidol [From Haldol] Allergy See Verified 09/30/17 13:47 Comments Penicillins Allergy Anaphylaxis Verified 09/30/17 13:47 triazolam [From Halcion] Allergy See Verified 09/30/17 13:47 Comments All systems ED: reviewed and negative except as stated. Review of Systems: As Per HPI Constitutional: Denies: fever Cardiovascular: Denies: chest pain, palpitations Respiratory: Denies: cough, dyspnea, hemoptysis Gastrointestinal: Denies: abdominal pain, nausea, vomiting Genitourinary: Denies: urgency, dysuria, frequency Neurological: Reports: weakness. Denies: headache, numbness, paresthesias Past Medical History - Past Medical History Medical history: Reports: CVA, dementia, diabetes, hyperlipidemia, hypertension Surgical history: Reports: SARAI/BSO Psychiatric history: Reports: depression - Social History Smoking Status: Never smoker Smokeless Tobacco Status: No Alcohol use: Reports: none Drug use: Reports: none Physical Exam General: 82-year-old female who is smiling in no acute distress Head: autraumatic, EOMI, no conjuncitval pallor, no scleral icterus, Mouth: oral mucous membranes moist Neck: neck soft, trachea midline Chest:: Equal chest wall rise Lungs: Normal lungs sounds bilaterally, no wheezes, no respiratory distress Heart: normal heart sounds, normal rate and rhythm, Abdomen: soft, non-tender, no rigidity, no guarding, no rebdound tenderness Lower Extremities: no pedal edema, calves non-tender Integumentary: Skin warm, dry, and intact Neuro: Alert, but not oriented to person, place, or time Psych: normal affect, normal mood - General Limitations: altered mental status General appearance: alert, in no apparent distress Course Vital Signs Temperature 98.9 F 09/30/17 10:17 Pulse Rate 90 11/14/17 10:17 Respiratory Rate 18 09/30/17 10:17 Blood Pressure 132/73 09/30/17 10:17 O2 Sat by Pulse Oximetry 100 09/30/17 10:17 Temperature 98.9 F 10/01/17 10:44 Pulse Rate 78 10/01/17 10:44 Respiratory Rate 16 10/01/17 10:44 Blood Pressure 138/78 10/01/17 10:44 O2 Sat by Pulse Oximetry 94 10/01/17 10:44 Oxygen Delivery Oxygen Delivery Room Air Medical Decision Making - MDM Narrative Medical decision making narrative: 82-year-old female past medical history dementia up as this emergency department due to concern for skilled nursing for worsening lower extremity weakness and worsening altered mental status. We initiated a search for infection. Chest x-ray did not reveal any evidence of pneumonia, urinalysis not reveal any evidence of a urinary tract infection. We did obtain a CT of the head to rule out any intracranial abnormalities and this was negative as well. Due to concern for patient's lower extremity weakness and skilled nursing's concern and daughter's concern, we admitted the patient to the hospital for further workup and evaluation as we do not want this patient to be at increased risk of falling when she has been to the skilled nursing. The patient was admitted to the hospitalist and agreed to accept the patient. I discussed admission with daughter and she agreed with the plan. The patient was not in any acute distress at time of admission. Chest X-Ray 09/30/17 10:19 IMPRESSION: No acute process. D/ / Jose De Jesus Anderson MD / Jose De Jesus Anderson MD Interpreting Provider: Jose De Jesus Anderson MD Head CT 09/30/17 10:23 IMPRESSION: Stable appearance of the brain with no acute intracranial abnormality. There is age-appropriate cerebral atrophy with evidence of chronic periventricular small vessel ischemic disease. D/ / Ronal De La Paz MD / Ronal De La Paz MD Interpreting Provider: Ronal De La Paz MD Brain MRI 09/30/17 14:09 IMPRESSION: 1. Question of loss of the normal signal void within the proximal V4 segment of the left vertebral artery. This can be seen with slow flow versus occlusion. 2. Otherwise, no acute intracranial abnormality. No acute infarct. 3. Global parenchymal volume loss with chronic microvascular ischemic change. 4. Sequelae of prior hemorrhagic infarcts involving the right basal ganglia as well as the right posterior frontal lobe. D/ / Luis Lema MD / Luis Lema MD Interpreting Provider: Luis Lema MD - Medical Records Medical records reviewed: Yes I reviewed the patient's medical records. - Lab Data Lab results reviewed: Yes I reviewed the patient's lab results. Result diagrams: 10/01/17 04:32 10/01/17 04:32 Lab Results 09/30/17 09/30/17 09/30/17 Range/Units 10:15 10:50 12:14 WBC 6.4 (4.3-11.1) K/mcL RBC 4.48 (3.82-4.97) M/mcL Hgb 12.8 (11.5-15.4) g/dL Hct 39.3 (35.3-44.9) % MCV 87.7 (83.0-100.0) fL MCH 28.6 (28.0-33.3) pg MCHC 32.6 (31.6-35.5) g/dL RDW 15.5 H (11.5-14.5) % Plt Count 197 (140-400) K/mcL MPV 9.3 L (9.4-12.4) fL Immature Gran % 0.3 (0-4) % Seg Neutrophils % 65.0 % Lymphocytes % 25.8 % Monocytes % 6.5 % Eosinophils % 1.9 % Basophils % 0.5 % Neutrophils # 4.2 (1.6-8.9) K/mcL Lymphocytes # 1.7 (0.6-4.6) K/mcL Monocytes # 0.4 (0.0-1.3) K/mcL Eosinophils # 0.1 (0.0-0.6) K/mcL Basophils # 0.0 (0.0-0.2) K/mcL Reactive Lymphocytes Present A (Not Present) Platelet Estimate Normal (Normal) Sodium (136-145) mEq/L Potassium (3.5-4.5) mEq/L Chloride (98-109) mEq/L Carbon Dioxide (19-29) mEq/L BUN (7-20) mg/dL Creatinine (0.57-1.11) mg/dL Est GFR ( Amer) (> 60) Est GFR (Non-Af Amer) (> 60) BUN/Creatinine Ratio (6-26) Glucose (70-99) mg/dL POC Glucose 99 H (58-89) Calculated Osmolality (280-300) Calcium (8.6-10.8) mg/dL Total Bilirubin (0.2-1.2) mg/dL Direct Bilirubin (0.0-0.5) mg/dL Indirect Bilirubin (0.0-1.2) mg/dL AST (5-34) Units/L ALT (0-55) Units/L Alkaline Phosphatase (38-126) Units/L Troponin I (0-0.03) ng/mL Serum Total Protein (6.0-8.3) g/dL Albumin (3.5-5.0) g/dL Globulin (2.4-3.5) g/dL Albumin/Globulin Ratio (1.1-2.2) Urine Color Yellow (Yellow) Urine Clarity Cloudy A (Clear) Urine pH 5.0 (5.0-8.0) pH Units Ur Specific [place] 1.015 (1.010-1.025) Urine Protein Negative (Neg-Trace) mg/dL Urine Glucose (UA) Normal (Normal) mg/dL Urine Ketones Negative (Negative) mg/dL Urine Blood Negative (Negative) Urine Nitrite Negative (Negative) Urine Bilirubin Negative (Negative) Urine Urobilinogen Normal (Normal) mg/dL Ur Leukocyte Esterase Negative (Negative) Urine Microscopic RBC 0-3 (0-3) per hpf Urine Microscopic WBC 0-3 (0-3) per hpf Ur Squamous Epith Cells Few (None-Few) per lpf Urine Bacteria None Seen (None-Few) per hpf Hyaline Casts Test Not Performed Urine Yeast Few H (None Seen) per hpf Ur Culture Indicated? NO (NO) 09/30/17 09/30/17 Range/Units 12:14 12:14 WBC (4.3-11.1) K/mcL RBC (3.82-4.97) M/mcL Hgb (11.5-15.4) g/dL Hct (35.3-44.9) % MCV (83.0-100.0) fL MCH (28.0-33.3) pg MCHC (31.6-35.5) g/dL RDW (11.5-14.5) % Plt Count (140-400) K/mcL MPV (9.4-12.4) fL Immature Gran % (0-4) % Seg Neutrophils % % Lymphocytes % % Monocytes % % Eosinophils % % Basophils % % Neutrophils # (1.6-8.9) K/mcL Lymphocytes # (0.6-4.6) K/mcL Monocytes # (0.0-1.3) K/mcL Eosinophils # (0.0-0.6) K/mcL Basophils # (0.0-0.2) K/mcL Reactive Lymphocytes (Not Present) Platelet Estimate (Normal) Sodium 137 (136-145) mEq/L Potassium 3.8 (3.5-4.5) mEq/L Chloride 102 (98-109) mEq/L Carbon Dioxide 26 (19-29) mEq/L BUN 15 (7-20) mg/dL Creatinine 0.80 (0.57-1.11) mg/dL Est GFR ( Amer) > 60 (> 60) Est GFR (Non-Af Amer) > 60 (> 60) BUN/Creatinine Ratio 19 (6-26) Glucose 141 H (70-99) mg/dL POC Glucose (58-89) Calculated Osmolality 287 (280-300) Calcium 9.2 (8.6-10.8) mg/dL Total Bilirubin 0.5 (0.2-1.2) mg/dL Direct Bilirubin 0.3 (0.0-0.5) mg/dL Indirect Bilirubin 0.2 (0.0-1.2) mg/dL AST 16 (5-34) Units/L ALT 17 (0-55) Units/L Alkaline Phosphatase 112 (38-126) Units/L Troponin I 0.01 (0-0.03) ng/mL Serum Total Protein 6.7 (6.0-8.3) g/dL Albumin 3.1 L (3.5-5.0) g/dL Globulin 3.6 H (2.4-3.5) g/dL Albumin/Globulin Ratio 0.9 L (1.1-2.2) Urine Color (Yellow) Urine Clarity (Clear) Urine pH (5.0-8.0) pH Units Ur Specific [place] (1.010-1.025) Urine Protein (Neg-Trace) mg/dL Urine Glucose (UA) (Normal) mg/dL Urine Ketones (Negative) mg/dL Urine Blood (Negative) Urine Nitrite (Negative) Urine Bilirubin (Negative) Urine Urobilinogen (Normal) mg/dL Ur Leukocyte Esterase (Negative) Urine Microscopic RBC (0-3) per hpf Urine Microscopic WBC (0-3) per hpf Ur Squamous Epith Cells (None-Few) per lpf Urine Bacteria (None-Few) per hpf Hyaline Casts Urine Yeast (None Seen) per hpf Ur Culture Indicated? (NO) - Radiology Data Radiology results reviewed: Yes I reviewed the patient's radiology results. - EKG Data EKG #1 EKG attestation: Yes I reviewed and interpreted this EKG. EKG results narrative: 10:13 Ventricular rate 93 bpm, ID interval 169 ms, QRS duration 89 ms, QT 374 ms, QTC 425 ms, normal axis. Sinus rhythm with a ventricular rate of 92 bpm, mild ST segment flattening in septal and lateral leads. This is new from an electrocardiogram performed on May 22, 2017.
[2017-09-30] MEDS ORDERED: Ipratropium/Albuterol Neb 3 ML IH PRN (14:07)
[2017-09-30] MEDS ORDERED: D5% in Water 1,000 ML IVC PRN (14:13)
[2017-09-30] MEDS ORDERED: *HR* Dextrose 50 % in Water (Syg) 50 ML SYRINGE IVP PRN (14:13)
[2017-09-30] MEDS ORDERED: Naloxone 0.4 MG/ML INJ IVP PRN (14:13)
[2017-09-30] MEDS ORDERED: Dextrose Gel 15 GM PO PRN ×2 (14:13)
--- NOTE | 2017-09-30 14:21 | Internal Med History&Physical ---
Addendum entered and electronically signed by Kofi Dickens 09/30/17 21:32: r/o shingles rash; D/C valacyclovir likely skin yeast infection with pustules; start fluconazole 100mg IVPB QD Original Note: <DickensKofi holder - Last Filed: 09/30/17 20:49> Date of Encounter: 09/30/17 Time of Encounter: 14:19 Assessment and Plan (1) TIA (transient ischemic attack) Current visit: Yes Status: Suspected She came in today with reports of altered mental status greater than patient's baseline. Extended care facility reported increasing lethargy and bilateral lower extremity weakness. However, the patient denies any additional extremity weakness from baseline. She does admit to painful skin lesions on posterior right inner thigh which has been making more difficult to ambulate. There is no dysarthria,or focal deficits present and family reports the patient is back to baseline. D/T h/o CVA and prior TIA's I will continue with a neuro workup to r/ o additional ischemic event. CT of head is thus far negative. MRI head and brain without contrast carotid doppler consult neurology- days team to call continuous tele, spo2 monitoring Qualifiers: Transient cerebral ischemia type: unspecified Qualified Code(s): G45.9 - Transient cerebral ischemic attack, unspecified (2) Shingles rash Current visit: Yes Status: Suspected Pruritic, pustular herpetic appearing clusters on insurance account assistant medial Rt thigh on a erythematous base. She is not aware of when they appeared, and denies any neuropathic pain, however, they appear to be a zosters rash. Additionally, she appears to have a fungal rash in this area and will need treatment for both Valacyclovir 1000mg Q8hrs Qualifiers: Herpes zoster complications: unspecified herpes zoster complication Qualified Code(s): B02.8 - Zoster with other complications (3) Dementia Current visit: Yes Status: Chronic Presented with alterations in mental status beyond patient's baseline. There was initially some concern for TIA, however the patient never had dysarthria, motor ataxia, or focal neuro deficits. She appears to be back to baseline per family member at bedside. See plan above Qualifiers: Dementia type: unspecified type Dementia behavioral disturbance: without behavioral disturbance Qualified Code(s): F03.90 - Unspecified dementia without behavioral disturbance (4) Lower extremity weakness Current visit: Yes Status: Acute Qualifiers: Qualified Code(s): R29.898 - Other symptoms and signs involving the musculoskeletal system (5) Hypertension Current visit: Yes Status: Chronic History of hypertension. Hemodynamically stable at this time. Continue calcium Bright and Beta Bright Qualifiers: Hypertension type: essential hypertension Qualified Code(s): I10 - Essential (primary) hypertension (6) CAD (coronary artery disease) Current visit: Yes Status: Chronic Continue calcium channel bright, beta bright, aspirin and statin Qualifiers: Coronary Disease-Associated Artery/Lesion type: bypass graft [place] vs. transplanted heart: [place] heart Associated angina: without angina Qualified Code(s): I25.810 - Atherosclerosis of coronary artery bypass graft(s) without angina pectoris (7) Diabetes Current visit: Yes Status: Acute LSSIC, GLARGINE, AC/HS accucheck, DM diet Qualifiers: Diabetes mellitus type: type 2 Diabetes mellitus complication status: without complication Diabetes mellitus half-way insulin use: with half-way use Qualified Code(s): E11.9 - Type 2 diabetes mellitus without complications ; Z79.4 - lobsterman (current) use of insulin; Z79.4 - lobsterman (current) use of insulin; Z79.4 - care home (current) use of insulin; Z79.4 - care home ( current) use of insulin (8) DVT prophylaxis Current visit: Yes Status: Acute Heparin 5000units SC BID Internal Medicine - H&P: HPI Chief complaint: AMS R/O TIA Admitted From: Home Plans for Post Hospital Care: Home History of present illness: Ms. Bashir is a 82 year old female with a PMH of DM, HTN, HLD, CVA, and dementia who presents to the ED with AMS which began yesterday. All information obtained from chart review and patients family at bedside as well as ED physician. The patients Niece who is POA is at bedside and reports that she was informed this morning that the patient began experiencing AMS yesterday evening. The [facility] care facility ([facility]) reported that she was febrile 101.8, and confused above baseline. This morning they report that she seemed lethargic and that it took her longer than normal to "perk up". Due to h/o CVA and TIA's they were concerned and sent her to the ED. Upon arrival the patient appears to be at baseline per her Niece. Denies any fever, chills, abdominal pain, dysuria, SOB, slurred speech, facial droop, numbness/tingling, dizziness, syncope or CP. Past Med Surg Social Fam HX - Past Medical History Medical history: CVA, dementia, diabetes, hyperlipidemia, hypertension Psychiatric history: depression - Past Surgical History Surgical History: SARAI/BSO - Social History Smoking Status: Never smoker Smokeless Tobacco Status: No Alcohol use: none Drug use: none - Family History Mother Hx Family Neurologic Disorders: Yes Father Hx Family Cardiac Disorders: Yes Hx Family Endocrine Disorder: Yes Internal Medicine - H&P: Meds Atorvastatin [Lipitor] 40 mg PO HS 08/25/16 [History] Cholecalciferol (Vitamin D3) [Vitamin D3] 5,000 unit PO DAILY 08/25/16 [History] Docusate [Colace] 100 mg PO BID 08/25/16 [History] Ipratropium/Albuterol Neb [Duoneb] 3 ml IH Q4HR PRN 08/25/16 [History] Memantine [Namenda] 10 mg PO BID 08/25/16 [History] Metoprolol Tartrate 50 mg PO BID 08/25/16 [History] Paroxetine HCl [Paroxetine] 10 mg PO DAILY 08/25/16 [History] Travoprost [Travatan Z] 1 drop OP DAILY 08/25/16 [History] amLODIPine [Norvasc] 2.5 mg PO DAILY 08/25/16 [History] Aspirin 81 mg PO DAILY #30 tab.chew 08/27/16 [Rx] Insulin Glargine,Hum.rec.anlog [Lantus Solostar] 12 unit SQ HS 04/05/17 [History ] Glucagon,Human Recombinant [Glucagen] 1 mg IJ AD PRN 09/30/17 [History] Insulin ASPART [NovoLOG] 14 unit SQ TID 09/30/17 [History] Lactulose 20 gm PO DAILY 09/30/17 [History] Menthol/Zinc Oxide [Calmoseptine Ointment Packet] 1 appl TP BID PRN 09/30/17 [ History] Mometasone Furoate [Elocon] 1 appl TP BID 09/30/17 [History] Nystatin POWDER [Nystop] 1 appl TP BID 09/30/17 [History] 3 Allergy/AdvReac Type Severity Reaction Status Date / Time haloperidol [From Haldol] Allergy See Verified 09/30/17 13:47 Comments Penicillins Allergy Anaphylaxis Verified 09/30/17 13:47 triazolam [From Halcion] Allergy See Verified 09/30/17 13:47 Comments All Systems PM: A 10-system review of systems was performed and is negative for pertinent findings except as documented above in the HPI. - Constitutional Constitutional: fever(s), weakness, no chills, no fatigue, no falls - Cardiovascular Cardiovascular ROS IM: no chest pain, no diaphoresis, no dyspnea, no irregular heart rhythm, no lightheadedness, no palpitations, no syncope - Respiratory Respiratory: no cough, no dyspnea, no wheezing, no excessive phlegm production - Gastrointestinal Gastrointestinal: no abdominal pain, no diarrhea, no hematemesis, no hematochezia, no melena, no nausea, no vomiting - Genitourinary Genitourinary: no change in urinary stream, no dysuria, no flank pain, no hematuria - Musculoskeletal Musculoskeletal ROS IM: no back pain, no numbness, no tingling - Integumentary Integumentary IM: rash - Neurological Neurological ROS: as per HPI, behavioral changes, confusion, weakness, no abnormal gait, no abnormal movements, no abnormal speech, no convulsions, no disequilibrium, no dizziness, no focal weakness, no headache(s), no loss of vision, no memory loss, no numbness, no tingling, no tremor(s) - Constitutional Vitals: Temp Pulse Resp BP Pulse Ox 98.9 F 100 14 128/73 97 09/30/17 10:17 09/30/17 13:23 09/30/17 13:23 09/30/17 13:23 09/30/17 13:23 General appearance: Present: A&O X 1, no acute distress - Head Head exam: Present: atraumatic, normocephalic - Eye Eye exam: Present: EOMI, PERRL, conjuntiva pink, sclera anicteric Pupils: Present: PERRL - Neck Neck exam general surgery: Present: supple, trachea midline. Absent: lymphadenopathy - Respiratory Respiratory exam: Present: CTAB. Absent: accessory muscle use, rales, rhonchi, wheezes - Cardiovascular Cardiovascular exam: Present: RRR, +S1, +S2. Absent: diastolic murmur, gallop, rubs, systolic murmur - GI/Abdominal GI/Abdominal exam: Present: normal bowel sounds, soft, no peritoneal signs. Absent: distended, tenderness - Extremities Exam Extremities exam: Present: warm, radial pulses palpable and symmetrical. Absent : calf tenderness, cyanotic, pedal edema - Neurological Exam Neurological exam: Present: CN II-XII intact, oriented X3, no focal deficits. Absent: pronater drift, facial droop, speech deficit - Expanded Neurological Exam Neuro motor strength exam: LLE: 4, RLE: 4 - Skin Skin exam: Present: dry, intact Internal Med - H&P Results - Labs CBC & Chem 7: 09/30/17 12:14 09/30/17 12:14 - EKG Data -: EKG Interpreted by Myself EKG shows normal: sinus rhythm Rate: normal - EKG Data Prior EKG available for review: no - Diagnostic Studies CT scan - head Status: image reviewed by me Additional comments: no acute intracranial abnormality Chest x-ray Status: image reviewed by me Additional comments: no acute pulmonary process <Bernardo Jauregui - Last Filed: 09/30/17 22:35> Date of Encounter: 09/30/17 Internal Medicine - H&P: HPI History of present illness: Ms. Bashir is a 82 year old female All Systems PM: A 10-system review of systems was performed and is negative for pertinent findings except as documented above in the HPI. - Constitutional Vitals: Temp Pulse Resp BP Pulse Ox 98.8 F 105 16 137/74 99 09/30/17 18:58 09/30/17 18:58 09/30/17 18:58 09/30/17 18:58 09/30/17 18:58 Internal Med - H&P Results - Labs CBC & Chem 7: 09/30/17 12:14 09/30/17 12:14 Labs: Cardiac Enzymes 09/30/17 Range/Units 17:42 Troponin I 0.01 (0-0.03) ng/mL - Impressions ITS Impressions Brain MRI 09/30/17 14:09 IMPRESSION: 1. Question of loss of the normal signal void within the proximal V4 segment of the left vertebral artery. This can be seen with slow flow versus occlusion. 2. Otherwise, no acute intracranial abnormality. No acute infarct. 3. Global parenchymal volume loss with chronic microvascular ischemic change. 4. Sequelae of prior hemorrhagic infarcts involving the right basal ganglia as well as the right posterior frontal lobe. D/ / Luis Lema MD / Luis Lema MD Interpreting Provider: Luis Lema MD - Attending Attestation I have personally performed a face to face evaluation on this patient. I have reviewed and agree with the care plan. History and Exam by me shows: 82 y/o female brought to ED due to inability to walk and mental status change. ? fever at ECF - none here. Currently appears to be at baseline. Exam Alert. Comfortable Heart reg No wheeze Abd soft R LE - rash noted. Erythema present. Agree with assessment and plan as above.
[2017-09-30] MEDS: Insulin LISPRO 300 UNITS/3 ML VIAL SQ SCH (15:46)
[2017-09-30] MEDS: *HR* Heparin 5,000 UNIT/ML VIAL SQ SCH (17:41)
--- NOTE | 2017-09-30 18:05 | Neurology - Consult Note ---
Date of Encounter: 09/30/17 Time of Encounter: 17:58 Assessment and Plan (1) Altered mental status Current Visit: Yes Status: Acute Patient is an elderly patient with PMH significant for CVAx2, dementia, DM who developed two episodes of altered mental status described as lethargy, without focal neurological deficits. No fever and no laboratory abnormalities to suggest infection. No headaches and no dizziness. No motor activity reported. Differentials are wide and can certainly be related to underlying medical condition that is rapidly improving. seizure unlikely but due to history of stroke and dementia will obtain a routine EEG. Agree with obtaining carotid artery duplex study. Please continue Aspirin 81mg daily. Medical and supportive care. Will do EEG in AM. (ordered). Qualifiers: Altered mental status type: somnolence Qualified Code(s): R40.0 - Somnolence History of Present Illness Chief complaint: lethagy HPI: Ms. Bashir is a 82 year old female with PMH significant for dementia, history of CVA who developed recurrent lethargy and possible TIA. Patient is interviewed in the presence of her daughter in law. Patient lives in an assisted living. She does have dementia. Yesterday she was found to be acting a little different and she was lethagic, which later on resolved. Then this morning they found the same thing and the was was lethargic and there is also report of some fever at the assisted living. Therefore she was brought in for further evaluation mainly to check whether she had a stroke. Initial CT of head was reported no acute intracranial abnormality. She has had two strokes in the past per her daughter in law. she had larger one and then a smaller stroke. However, she did not have significant obvious stroke symptoms after the two strokes she had. Able to walk at home. But does have significant cognitive impairment. She recognizes her daughter in law but at times call her 'sis' She would not know the year and month and the date. MR/MR head/brain wo con IMPRESSION: 1. Question of loss of the normal signal void within the proximal V4 segment of the left vertebral artery. This can be seen with slow flow versus occlusion. 2. Otherwise, no acute intracranial abnormality. No acute infarct. 3. Global parenchymal volume loss with chronic microvascular ischemic change. 4. Sequelae of prior hemorrhagic infarcts involving the right basal ganglia as well as the right posterior frontal lobe. Past Med Surg Social Fam HX - Past Medical History Medical history: CVA, dementia, diabetes, hyperlipidemia, hypertension Psychiatric history: depression - Past Surgical History Surgical History: SARAI/BSO - Social History Smoking Status: Never smoker Smokeless Tobacco Status: No Alcohol use: none Drug use: none - Family History Mother Hx Family Neurologic Disorders: Yes Father Hx Family Cardiac Disorders: Yes Hx Family Endocrine Disorder: Yes Medications and Allergies Atorvastatin [Lipitor] 40 mg PO HS 08/25/16 [History] Cholecalciferol (Vitamin D3) [Vitamin D3] 5,000 unit PO DAILY 08/25/16 [History] Docusate [Colace] 100 mg PO BID 08/25/16 [History] Ipratropium/Albuterol Neb [Duoneb] 3 ml IH Q4HR PRN 08/25/16 [History] Memantine [Namenda] 10 mg PO BID 08/25/16 [History] Metoprolol Tartrate 50 mg PO BID 08/25/16 [History] Paroxetine HCl [Paroxetine] 10 mg PO DAILY 08/25/16 [History] Travoprost [Travatan Z] 1 drop OP DAILY 08/25/16 [History] amLODIPine [Norvasc] 2.5 mg PO DAILY 08/25/16 [History] Aspirin 81 mg PO DAILY #30 tab.chew 08/27/16 [Rx] Insulin Glargine,Hum.rec.anlog [Lantus Solostar] 12 unit SQ HS 04/05/17 [History ] Glucagon,Human Recombinant [Glucagen] 1 mg IJ AD PRN 09/30/17 [History] Insulin ASPART [NovoLOG] 14 unit SQ TID 09/30/17 [History] Lactulose 20 gm PO DAILY 09/30/17 [History] Menthol/Zinc Oxide [Calmoseptine Ointment Packet] 1 appl TP BID PRN 09/30/17 [ History] Mometasone Furoate [Elocon] 1 appl TP BID 09/30/17 [History] Nystatin POWDER [Nystop] 1 appl TP BID 09/30/17 [History] 3 Allergy/AdvReac Type Severity Reaction Status Date / Time haloperidol [From Haldol] Allergy See Verified 09/30/17 13:47 Comments Penicillins Allergy Anaphylaxis Verified 09/30/17 13:47 triazolam [From Halcion] Allergy See Verified 09/30/17 13:47 Comments All Systems: A 10-system review of systems was performed and is negative for pertinent findings except as documented above in the HPI. Physical Examination - Vital Signs Vital Signs: Initial Vital Signs Temp Pulse Resp BP Pulse Ox 98.9 F 90 18 132/73 100 09/30/17 10:17 09/30/17 10:17 09/30/17 10:17 09/30/17 10:17 09/30/17 10:17 - Constitutional General appearance: comfortable - Neurologic Sensorimotor examination: other (Grossl intact) Detailed motor examination: grossly full strength in all extremities Motor examination - right side: 5/5: deltoids, biceps, triceps, wrist flexion, wrist extension, board layer, hip flexors, tibialis Anterior, quadriceps, toe extension (EHL), plantarflexion Motor examination - left side: 5/5: deltoids, biceps, triceps, wrist flexion, wrist extension, hip flexors, board layer, quadriceps, tibialis Anterior, toe extension (EHL), plantarflexion Detailed sensory examination: other (Grossl intact) Reflexes: Biceps: 1+, Triceps: 1+, Brachioradialis: 1+, Patella: 1+, Achilles: 1 + Mental Status Examination: awake, alert, oriented to person, follows commands appropriately, answers questions appropriately, opens eyes to voice, makes eye contact, follows simple commands, demented Mental Status Examination: Patient does not know the year, month or day. Recognizes her daughter in law immediately. Able to repeat but has difficulty in spelling and in calculation. Repeats well. Cranial nerve examination: PERRL, EOMI, visual fischer intact, corneal reflexes brisk symmetrically, sensory to face intact, mastication intact, no facial asymmetry is present, no dysarthria, hearing is intact symmetrically, soft palate elevates bilaterally upon phonation, gag reflex intact, flexes SCM and trapezius muscles symmetrically with full power, tongue protrudes midline, no atrophy or facial fasiculations present Results - Laboratory Findings CBC and BMP: 09/30/17 12:14 09/30/17 12:14 Abnormal lab findings: Abnormal lab results RDW 15.5 % (11.5-14.5) H 09/30/17 12:14 MPV 9.3 fL (9.4-12.4) L 09/30/17 12:14 Reactive Lymphocytes Present (Not Present) A 09/30/17 12:14 Glucose 141 mg/dL (70-99) H 09/30/17 12:14 POC Glucose 99 (58-89) H 09/30/17 10:15 Albumin 3.1 g/dL (3.5-5.0) L 09/30/17 12:14 Globulin 3.6 g/dL (2.4-3.5) H 09/30/17 12:14 Albumin/Globulin Ratio 0.9 (1.1-2.2) L 09/30/17 12:14 Urine Clarity Cloudy (Clear) A 09/30/17 10:50 Urine Yeast Few per hpf (None Seen) H 09/30/17 10:50 Consult Discharge Plan - Plan Referrals: Millie Muniz [Primary Care Provider] -
[2017-09-30] MEDS ORDERED: valACYclovir 500 MG TABLET PO SCH (21:00)
[2017-09-30] MEDS ORDERED: Insulin LISPRO 300 UNITS/3 ML VIAL SQ SCH (21:00)
[2017-09-30] MEDS ORDERED: Insulin DETEMIR 100 UNIT/ML X5UNITS SQ SCH (21:00)
[2017-09-30] MEDS ORDERED: Fluconazole 100 MG/50 ML 100 MG/50 ML BAG IVPB SCH (21:45)
[2017-10-01 05:11] LABS: Basophils % 0.5 %; Eosinophils # 0.2 K/mcL (0.0-0.6); Eosinophils % 2.6 %; Hematocrit 35.2 % (35.3-44.9); Hemoglobin 11.5 g/dL (11.5-15.4); Immature Granulocytes % 0.5 % (0-4); Lymphocytes # 1.6 K/mcL (0.6-4.6); Lymphocytes % 24.3 %; Mean Corpuscular HGB Conc 32.7 g/dL (31.6-35.5); Mean Corpuscular Hemoglobin 28.5 pg (28.0-33.3); Mean Corpuscular Volume 87.1 fL (83.0-100.0); Mean Platelet Volume 10.3 fL (9.4-12.4); Monocytes # 0.5 K/mcL (0.0-1.3); Monocytes % 7.7 %; Neutrophils # 4.3 K/mcL (1.6-8.9); Platelet Count 209 K/mcL (140-400); Red Blood Count 4.04 M/mcL (3.82-4.97); Red Cell Distribution Width 15.3 % (11.5-14.5); Segmented Neutrophils % 64.4 %
[2017-10-01 05:28] LABS: Alanine Aminotransferase 17 Units/L (0-55); Albumin 2.8 g/dL (3.5-5.0); Albumin/Globulin Ratio 0.8 (1.1-2.2); Alkaline Phosphatase 100 Units/L (38-126); Aspartate Amino Transferase 17 Units/L (5-34); BUN/Creatinine Ratio 27 (6-26); Bilirubin,Total 0.6 mg/dL (0.2-1.2); Blood Urea Nitrogen 21 mg/dL (7-20); Calcium 8.8 mg/dL (8.6-10.8); Carbon Dioxide 24 mEq/L (19-29); Chloride 103 mEq/L (98-109); Globulin 3.4 g/dL (2.4-3.5); Glucose 174 mg/dL (70-99); Osmolality,Calculated 289 (280-300); Potassium 4.1 mEq/L (3.5-4.5); Sodium 136 mEq/L (136-145); Total Protein 6.2 g/dL (6.0-8.3); eGFR For African Americans > 60 (> 60); eGFR For Non-African Americans > 60 (> 60)
[2017-10-01] MEDS: *HR* Heparin 5,000 UNIT/ML VIAL SQ SCH (05:37)
[2017-10-01 05:40] LABS: Platelet Estimate Normal (Normal); Reactive Lymphocytes Present (Not Present)
--- NOTE | 2017-10-01 07:21 | Electrocardiograph Report ---
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
[2017-10-01] MEDS: Insulin LISPRO 300 UNITS/3 ML VIAL SQ SCH ×2 (07:51→11:33)
[2017-10-01] MEDS ORDERED: amLODIPine 5 MG TABLET PO SCH (09:00)
[2017-10-01] MEDS ORDERED: Cholecalciferol (D-3) 1,000 UNIT TABLET PO SCH (09:00)
[2017-10-01] MEDS ORDERED: Aspirin 81 MG TAB.CHEW PO SCH (09:00)
[2017-10-01] MEDS ORDERED: Fluconazole 100 MG TABLET PO SCH (09:00)
[2017-10-01] MEDS ORDERED: Lactulose Oral Soln 20 GM/30 ML UDC PO SCH (09:00)
[2017-10-01] MEDS ORDERED: Latanoprost 2.5 ML BOTTLE BOTH EYES SCH (09:00)
--- NOTE | 2017-10-01 09:36 | Discharge Summary ---
Date of Encounter: 10/02/17 Time of Encounter: 09:34 - Discharge Diagnosis (1) TIA (transient ischemic attack) Priority: Primary Status: Suspected Qualifiers: Transient cerebral ischemia type: unspecified Qualified Code(s): G45.9 - Transient cerebral ischemic attack, unspecified (2) Acute metabolic encephalopathy Priority: Secondary Status: Acute (3) Superficial fungal infection of skin Priority: Primary Status: Acute (4) Hypertension Priority: Secondary Status: Chronic Qualifiers: Hypertension type: essential hypertension Qualified Code(s): I10 - Essential (primary) hypertension (5) Dementia Priority: Secondary Status: Chronic Qualifiers: Dementia type: unspecified type Dementia behavioral disturbance: without behavioral disturbance Qualified Code(s): F03.90 - Unspecified dementia without behavioral disturbance (6) CAD (coronary artery disease) Priority: Secondary Status: Chronic Qualifiers: Coronary Disease-Associated Artery/Lesion type: bypass graft [place] vs. transplanted heart: [place] heart Associated angina: without angina Qualified Code(s): I25.810 - Atherosclerosis of coronary artery bypass graft(s) without angina pectoris (7) Diabetes Priority: Secondary Status: Chronic Qualifiers: Diabetes mellitus type: type 2 Diabetes mellitus complication status: without complication Diabetes mellitus technical mgr insulin use: with longterm use Qualified Code(s): E11.9 - Type 2 diabetes mellitus without complications ; Z79.4 - long-term (current) use of insulin; Z79.4 - shop welder (current) use of insulin; Z79.4 - shop welder (current) use of insulin; Z79.4 - long-term ( current) use of insulin - Discharge Medications Home Medications: Atorvastatin [Lipitor] 40 mg PO HS 08/25/16 [History] Cholecalciferol (Vitamin D3) [Vitamin D3] 5,000 unit PO DAILY 08/25/16 [History] Ipratropium/Albuterol Neb [Duoneb] 3 ml IH Q4HR PRN 08/25/16 [History] Memantine [Namenda] 10 mg PO BID 08/25/16 [History] Metoprolol Tartrate 50 mg PO BID 08/25/16 [History] Paroxetine HCl [Paroxetine] 10 mg PO DAILY 08/25/16 [History] Travoprost [Travatan Z] 1 drop OP DAILY 08/25/16 [History] amLODIPine [Norvasc] 2.5 mg PO DAILY 08/25/16 [History] Aspirin 81 mg PO DAILY #30 tab.chew 08/27/16 [Rx] Insulin Glargine,Hum.rec.anlog [Lantus Solostar] 12 unit SQ HS 04/05/17 [History ] Glucagon,Human Recombinant [Glucagen] 1 mg IJ AD PRN 09/30/17 [History] Insulin ASPART [NovoLOG] 14 unit SQ TID 09/30/17 [History] Lactulose 20 gm PO DAILY 09/30/17 [History] Menthol/Zinc Oxide [Calmoseptine Ointment Packet] 1 appl TP BID PRN 09/30/17 [ History] Mometasone Furoate [Elocon] 1 appl TP BID 09/30/17 [History] Nystatin POWDER [Nystop] 1 appl TP BID 09/30/17 [History] Docusate [Colace] 100 mg PO BID PRN #0 10/01/17 [Rx] Fluconazole [Diflucan] 100 mg PO DAILY 7 Days tablet 10/01/17 [Rx] Allergies/Adverse Reactions: 3 Allergy/AdvReac Type Severity Reaction Status Date / Time haloperidol [From Haldol] Allergy See Verified 09/30/17 13:47 Comments Penicillins Allergy Anaphylaxis Verified 09/30/17 13:47 triazolam [From Halcion] Allergy See Verified 09/30/17 13:47 Comments Procedures/tests Complete & Pending: Procedures Performed prior 72 hours Category Date Time Status MR head/brain wo con [MR] Routine MRI 09/30/17 14:09 Completed EV carotid duplex imaging BI Routine Y 09/30/17 14:10 Completed Date of admission: 09/30/17 13:10 Primary care physician: Millie Muniz Consults: 09/30/17 14:10 Consult to Neurology [CONS] Routine Consulting Provider: Neurology [facility] Reason for Consult: tia Call Completed: No 09/30/17 14:45 Consult to Nutrition [CONS] Routine Comment: Consulting Provider: NUTRITION Reason for Dietary Consult: MST Score Consult to Athletic Coordinator [CONS] Routine Reason for SW Consult: From NCR 09/30/17 15:29 Consult to Speech Therapy [CONS] Routine Comment: Evaluate, develop and implement POC Reason for Consult: 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 Bashir is a 82 year old female with a PMH of DM, HTN, HLD, CVA, and dementia who presents to the ED from [facility] with confusion and change in mental status. Pt was admitted here with possible TIA. She remained afebrile, her mental status seems to be at baseline. She had an MRI done which did not show any acute CVA. She had Carotid doppler done which showed non stenotic plaque only. She was seen by Neurology, her EEG came back as mild to moderate diffuse cerebral dysfunction consistent with metabolic encephalopathy. Pt is alert, awake and oriented to place and self. Pleasantly demented, wants to go back to ECF. So will d/c her back to ECF in stable condition today. - Time Spent with Patient Total time spent providing and/or coordinating discharge services: - Constitutional Vitals: Temp Pulse Resp BP Pulse Ox 98.6 F 81 19 124/69 95 10/01/17 07:11 10/01/17 07:11 10/01/17 07:11 10/01/17 07:11 10/01/17 07:11 General appearance: Present: A&O X 1, no acute distress - Head Head exam: Present: atraumatic, normal inspection - Neck Neck exam general surgery: Present: supple - Respiratory Respiratory exam: Present: decreased breath sounds. Absent: respiratory distress, rhonchi, wheezes - Cardiovascular Cardiovascular exam: Present: RRR, +S1, +S2. Absent: systolic murmur - GI/Abdominal GI/Abdominal exam: Present: normal bowel sounds, soft. Absent: rebound, rigid, tenderness - Extremities Exam Extremities exam: Absent: calf tenderness, pedal edema, tenderness - Back Exam Back exam: Absent: CVA tenderness (L), CVA tenderness (R) - Neurological Exam Neurological exam: Present: alert - Psychiatric Psychiatric exam: Present: normal affect, normal mood Additional comments: pleasantly demented
[2017-10-01 10:49] VITALS: BP 138/78
--- NOTE | 2017-10-01 14:25 | EEG/EMG/Oth Biometrics Report ---
EEG Procedure Report Date of procedure: 10/01/17 EEG Procedure: Routine EEG Procedure Note: Report: This EEG was acquired with standard international 10-20 electrode placement system with EKG recording. The background activity during this EEG was replaced by a mixture of theta and alpha activity with best frequency up to 7-8 Hz. The background activity was reactive to eye openings. Sleep stages were characterized by the presence of K-complexes, Vertex wave and persistent delta slowing. There are no electrographic seizures identified during this tracing. There are no epileptiform discharges and focal slowing noted during this recording. Photic stimulation produced no abnormalities. HV not performed during this study. EKG tracing showed no significant cardiac dysarrhythmia. Impression: This is an abnormal EEG due to presence of mild to moderate diffuse background slowing. Clinical Correlation: This EEG is consistent with mild to moderate diffuse cerebral dysfunction that can be seen in patients with encephalopathy, metabolic/toxic, electrolyte derangement, or other causes. Clinical correlation suggested.
== END 2017-10-01 16:15 | disposition home or self-care (01) ==
LOC: 2ANU 10:10 → EMEROO 10:10 → 2ANU 13:45
PROVIDERS: ADMIT Nurse Practitioner; ATTEND Family Medicine

== ENCOUNTER 2021-08-11 09:52 | Inpatient (IN) ==
[2021-08-11] MEDS ORDERED: Isovue-370 500 ML BOTTLE IVP ONE (09:59)
[2021-08-11 10:44] LABS: Hematocrit 37.4 % (35.3-44.9); Hemoglobin 12.1 g/dL (11.5-15.4); Mean Corpuscular HGB Conc 32.4 g/dL (31.6-35.5); Mean Corpuscular Hemoglobin 29.5 pg (28.0-33.3); Mean Corpuscular Volume 91.2 fL (83.0-100.0); Platelet Count 223 K/mcL (140-400)
[2021-08-11 10:50] LABS: INR 1.1; Prothrombin Time 12.2 Seconds (9.4-12.1)
[2021-08-11 10:53] LABS: Activated Partial Thrombo Time 24.9 Seconds (26.0-36.0)
[2021-08-11 11:01] LABS: Alanine Aminotransferase 13 Units/L (7-52); Albumin 3.2 g/dL (3.5-5.7); Albumin/Globulin Ratio 1.3 (1.1-2.2); Alkaline Phosphatase 108 Units/L (34-104); Aspartate Amino Transferase 15 Units/L (13-39); BUN/Creatinine Ratio 19 (6-26); Bilirubin,Direct 0.1 mg/dL (0.0-0.2); Bilirubin,Indirect 0.3 mg/dL (0.0-1.0); Bilirubin,Total 0.4 mg/dL (0.3-1.0); Blood Urea Nitrogen 16 mg/dL (8-23); Calcium 8.4 mg/dL (8.6-10.3); Carbon Dioxide 27 mEq/L (23-29); Chloride 106 mEq/L (98-107); Globulin 2.4 g/dL (2.4-3.5); Glucose 184 mg/dL (70-105); Osmolality,Calculated 294 (280-300); Potassium 3.7 mEq/L (3.5-5.1); Sodium 139 mEq/L (136-145); Total Protein 5.6 g/dL (6.4-8.9); eGFR For African Americans > 60 (> 60); eGFR For Non-African Americans > 60 (> 60)
[2021-08-11 11:02] LABS: Troponin I < 0.03 ng/mL (< 0.04)
[2021-08-11 12:28] LABS: Bilirubin,Urine Negative (Negative); Blood,Urine Negative (Negative); Clarity,Urine Clear (Clear); Color,Urine Colorless (Yellow); Glucose,Urine (UA) Normal (Normal); Ketones,Urine Negative (Negative); Leukocyte Esterase,Urine Negative (Negative); Nitrite,Urine Negative (Negative); Protein,Urine Negative (Neg-Trace); Specific Gravity,Urine > 1.030 (1.010-1.025); Urobilinogen,Urine Normal (Normal)
[2021-08-11] MEDS ORDERED: Nystatin POWDER 30 GM BOTTLE TP PRN (14:57)
[2021-08-11] MEDS ORDERED: Lactulose Oral Soln 20 GM/30 ML UDC PO PRN (14:57)
[2021-08-11] MEDS ORDERED: Cyanocobalamin (B-12) 1,000 MCG/ML VIAL IM SCH (15:00)
[2021-08-11] MEDS ORDERED: Naloxone 0.4 MG/ML INJ IVP PRN ×2 (15:44→15:47)
[2021-08-11] MEDS ORDERED: Calamine/Zinc oxide Lotion 120 ML BOTTLE TP PRN (18:00)
[2021-08-11] MEDS: 0.9 % Sodium Chloride 1,000 ML IVC SCH (18:03)
[2021-08-11] MEDS ORDERED: Insulin DETEMIR 100 UNIT/ML X5UNITS SUBQ SCH (21:00)
[2021-08-11] MEDS: Insulin LISPRO 300 UNITS/3 ML VIAL SUBQ SCH (21:27)
[2021-08-11] MEDS: Latanoprost 2.5 ML BOTTLE BOTH EYES SCH (21:28)
[2021-08-11] MEDS: Insulin DETEMIR 100 UNIT/ML X5UNITS SUBQ SCH (21:38)
[2021-08-12] MEDS: *HR* Enoxaparin 40 MG/0.4 ML SYRINGE SQ SCH (06:12)
[2021-08-12] MEDS: 0.9 % Sodium Chloride 1,000 ML IVC SCH ×2 (06:12→17:58)
[2021-08-12 06:14] LABS: Hematocrit 39.9 % (35.3-44.9); Hemoglobin 12.5 g/dL (11.5-15.4); Mean Corpuscular HGB Conc 31.3 g/dL (31.6-35.5); Mean Corpuscular Hemoglobin 28.2 pg (28.0-33.3); Mean Corpuscular Volume 89.9 fL (83.0-100.0); Platelet Count 234 K/mcL (140-400); Red Blood Count 4.44 M/mcL (3.82-4.97); Red Cell Distribution Width 14.8 % (11.5-14.5); White Blood Count 6.5 K/mcL (4.3-11.1)
[2021-08-12 06:20] LABS: INR 1.1; Prothrombin Time 11.8 Seconds (9.4-12.1)
[2021-08-12 06:37] LABS: Alanine Aminotransferase 11 Units/L (7-52); Albumin 3.5 g/dL (3.5-5.7); Albumin/Globulin Ratio 1.5 (1.1-2.2); Alkaline Phosphatase 112 Units/L (34-104); Aspartate Amino Transferase 13 Units/L (13-39); BUN/Creatinine Ratio 17 (6-26); Bilirubin,Total 0.4 mg/dL (0.3-1.0); Blood Urea Nitrogen 12 mg/dL (8-23); Calcium 8.6 mg/dL (8.6-10.3); Carbon Dioxide 25 mEq/L (23-29); Chloride 108 mEq/L (98-107); Chol/HDL Ratio 3.3 (0-4.9); Cholesterol 125 mg/dL (< 200); Globulin 2.4 g/dL (2.4-3.5); Glucose 112 mg/dL (70-105); HDL Cholesterol 38 mg/dL (40-59); LDL Cholesterol,Calculated 58 mg/dL (< 100); Osmolality,Calculated 293 (280-300); Potassium 3.5 mEq/L (3.5-5.1); Sodium 141 mEq/L (136-145); Total Protein 5.9 g/dL (6.4-8.9); Triglycerides 144 mg/dL (< 150); Troponin I < 0.03 ng/mL (< 0.04); eGFR For African Americans > 60 (> 60); eGFR For Non-African Americans > 60 (> 60)
[2021-08-12] MEDS ORDERED: Perflutren Lipid Microsphere 1.3 ML in 0.9 % Sodium Chloride 8.7 ML IVP PRN (08:33)
[2021-08-12 08:49] LABS: Estimated Average Glucose 160 mg/dl; Hemoglobin A1C 7.2 %
[2021-08-12] MEDS: Aspirin 81 MG TAB.CHEW PO SCH (09:18)
[2021-08-12] MEDS: PARoxetine 10 MG TABLET PO SCH (09:19)
[2021-08-12] MEDS: Insulin LISPRO 300 UNITS/3 ML VIAL SUBQ SCH ×3 (09:19→20:32)
[2021-08-12] MEDS ORDERED: *HR* Labetalol 20 MG/4 ML SYRINGE IVP PRN (16:43)
[2021-08-12] MEDS: Insulin DETEMIR 100 UNIT/ML X5UNITS SUBQ SCH (20:33)
[2021-08-12] MEDS: Latanoprost 2.5 ML BOTTLE BOTH EYES SCH (22:02)
[2021-08-13] MEDS: *HR* Enoxaparin 40 MG/0.4 ML SYRINGE SQ SCH (05:57)
[2021-08-13] MEDS: PARoxetine 10 MG TABLET PO SCH (08:22)
[2021-08-13] MEDS: Aspirin 81 MG TAB.CHEW PO SCH (08:22)
[2021-08-13] MEDS: 0.9 % Sodium Chloride 1,000 ML IVC SCH ×2 (08:23→22:25)
[2021-08-13] MEDS: Insulin LISPRO 300 UNITS/3 ML VIAL SUBQ SCH (08:37)
[2021-08-13] MEDS: amLODIPine 5 MG TABLET PO SCH (14:20)
[2021-08-13] MEDS ORDERED: Insulin DETEMIR 100 UNIT/ML X5UNITS SUBQ SCH (21:00)
[2021-08-13] MEDS: Latanoprost 2.5 ML BOTTLE BOTH EYES SCH (22:27)
[2021-08-14] MEDS: *HR* Enoxaparin 40 MG/0.4 ML SYRINGE SQ SCH (06:23)
[2021-08-14] MEDS: amLODIPine 5 MG TABLET PO SCH (07:59)
[2021-08-14] MEDS: Aspirin 81 MG TAB.CHEW PO SCH (07:59)
[2021-08-14] MEDS ORDERED: PARoxetine 10 MG TABLET PO SCH (09:00)
[2021-08-14 10:22] VITALS: PULSE 64
[2021-08-14] MEDS: 0.9 % Sodium Chloride 1,000 ML IVC SCH (14:38)
[2021-08-14 16:15] VITALS: BP 174/75; TEMP 98.5; O2SAT 98
[2021-08-14 17:45] LABS: Adenovirus Not Detected (Not Detect); Bordetella Pertussis Not Detected (Not Detect); Chlamydophila pneumoniae Not Detected (Not Detect); Coronavirus 229E Not Detected (Not Detect); Coronavirus HKU1 Not Detected (Not Detect); Coronavirus NL63 Not Detected (Not Detect); Coronavirus OC43 Not Detected (Not Detect); Human Metapneumovirus Not Detected (Not Detect); Human Rhinovirus/Enterovirus Not Detected (Not Detect); Influenza A Subtype 2009 H1 Not Detected (Not Detect); Influenza B Not Detected (Not Detect); Mycoplasma pneumoniae Not Detected (Not Detect); Parainfluenza Virus 1 Not Detected (Not Detect); Parainfluenza Virus 2 Not Detected (Not Detect); Parainfluenza Virus 3 Not Detected (Not Detect); Parainfluenza Virus 4 Not Detected (Not Detect); Respiratory Syncytial Virus Not Detected (Not Detect); SARS-CoV-2 Not Detected (Not Detect)
[2021-08-17] MEDS ORDERED: Cyanocobalamin (B-12) 1,000 MCG/ML VIAL IM SCH (09:00)
== END 2021-08-14 19:30 | DRG 65 ==
LOC: 3BNU 09:52 → EMEROOARM 09:52 → SUATTDRO 14:44 → 3BNU 15:45 → SUATTDRO 08-12 16:42
PROVIDERS: ADMIT Internal Medicine; ATTEND Internal Medicine